=== PATIENT | female | born 1950 | race African-American/Black ===

== ENCOUNTER 2022-07-08 11:28 | Inpatient (IN) | payer OTHER ==
[2022-07-08 12:37] LABS: Mean Corpuscular HGB CONC 33.2 g/dL (32.0-36.0); Mean Corpuscular Hemoglobin 29.9 pg (27.0-33.0); Mean Platelet Volume 9.5 fl (7.4-10.4); Platelet Count 319 10x3/uL (150-450); RBC Distribution Width 18.1 % (11.5-14.5); Red Blood Cell (RBC) Count 3.01 10x6/uL (3.90-5.03); White Blood Cell (WBC) Count 4.8 10x3/uL (3.5-10.5)
[2022-07-08 12:38] LABS: MDiff Complete? YES
[2022-07-08 13:01] LABS: ALT (SGPT) 6 U/L (8-55); AST (SGOT) 19 U/L (5-34); Albumin 3.4 g/dL (3.4-4.8); Alkaline Phosphatase 50 U/L (40-110); Anion Gap 20 mmol/L (10-20); BUN (Urea Nitrogen) 17 mg/dL (9.8-20.1); Bilirubin, Total 0.4 mg/dL (0.2-1.2); Calc. Creatinine Clearance 0 mL/min (70-130); Calcium 9.3 mg/dL (7.8-10.44); Carbon Dioxide 23 mmol/L (23-31); Chloride 91 mmol/L (98-107); Estimated GFR 63; Globulin 3.5 g/dL (2.4-3.5); Glucose 111 mg/dL (83-110); Potassium 4.3 mmol/L (3.5-5.1); Protein, Total 6.9 g/dL (5.8-8.1); Sodium 130 mmol/L (136-145)
[2022-07-08 13:14] LABS: Band 2 % (5-11); Eosinophils 4 % (0-10); Lymphocytes 7 % (21-51); Monocytes 21 % (0-10); Neutrophil 66 % (42-75)
[2022-07-08 13:17] LABS: Hypochromia SLIGHT = 6-15 cells (100X) (0-5/hpf); Platelet Morphology Comment Appears Adequate
[2022-07-08 13:44] LABS: Magnesium 1.6 mg/dL (1.6-2.6)
[2022-07-08 14:50] LABS: Bilirubin Neg (Negative); Glucose, Urine (Dipstick) Normal (Negative); Specific Gravity, Urine 1.005 (1.005-1.030); Urobilinogen Normal mg/dL (Less than 2); pH, Urine 6.5 (5.0-9.0)
[2022-07-08 15:03] LABS: Blood, Urine Unable to Interpret (Negative); Clarity Clear (Clear); Ketone, Urine Unable to Interpret mg/dL (Negative); Leukocyte Unable to Interpret (Negative); Nitrite Unable to Interpret (Negative); Protein, Urine (Dipstick) Unable to Interpret mg/dl (Neg-Trace)
[2022-07-08 15:05] LABS: RBC/HPF 0-3 HPF (0-3); Squamous Epithelial 0-3 HPF (0-3)
[2022-07-08 15:06] LABS: Bacteria/HPF Rare-Few HPF (None Seen)
[2022-07-08] MEDS ORDERED: Senokot S 8.6-50 MG TAB PO PRN (21:38)
[2022-07-08] MEDS ORDERED: Guaifenesin DM 100-10/5 ML UDCUP PO PRN (21:38)
[2022-07-08] MEDS ORDERED: HumaLOG 300 UNITS/3 ML VIAL SC PRN (21:38)
[2022-07-08] MEDS ORDERED: HYDROcodone/Acetaminophen 5/325 mg Tablet PO PRN (21:38)
[2022-07-08] MEDS ORDERED: Dextrose 5% in Water 1,000 ML IV PRN (21:38)
[2022-07-08] MEDS ORDERED: Calcium Carbonate 500 MG ChewTAB PO PRN (21:38)
[2022-07-08] MEDS ORDERED: Dextrose 50% Abboject 50 ML SYRINGE SLOW IVP PRN (21:38)
[2022-07-08] MEDS ORDERED: Ondansetron PF 4 MG/2 ML Vial IVP PRN (21:38)
[2022-07-08] MEDS ORDERED: Acetaminophen 325 MG TAB PO PRN (21:38)
[2022-07-08] MEDS ORDERED: Famotidine/PF 20 mg/2ml Vial SLOW IVP SCH (21:45)
[2022-07-08] MEDS ORDERED: Lactated Ringer's 1,000 ML IV SCH (21:45)
[2022-07-08] MEDS ORDERED: Promethazine HCl 12.5 MG in Sodium Chloride 0.9% 50 ML IVPB SCH (21:45)
[2022-07-08] MEDS ORDERED: Scopolamine 1.5 mg/72 hour Patch TD SCH (22:00)
[2022-07-08] MEDS ORDERED: Magnesium 2 GM/50 ML(in water) 2 GM in Premix Bag 1 BAG IVPB SCH (22:00)
[2022-07-08] MEDS ORDERED: Sodium Chloride 0.9% 1,000 ML IV SCH (22:15)
[2022-07-09 00:57] VITALS: BMI 19.8
[2022-07-09] MEDS ORDERED: Promethazine HCl 12.5 MG in Sodium Chloride 0.9% 50 ML IVPB SCH (01:15)
[2022-07-09 02:14] LABS: SARS-CoV-2 NAA Rapid Test Not Detected (NotDetected)
[2022-07-09 05:57] LABS: Anion Gap 19 mmol/L (10-20); BUN (Urea Nitrogen) 18 mg/dL (9.8-20.1); CK (CPK) 36 U/L (29-168); Calc. Creatinine Clearance 44 mL/min (70-130); Calcium 9.1 mg/dL (7.8-10.44); Carbon Dioxide 20 mmol/L (23-31); Chloride 94 mmol/L (98-107); Estimated GFR 68; Glucose 105 mg/dL (83-110); Magnesium 2.1 mg/dL (1.6-2.6); Potassium 4.3 mmol/L (3.5-5.1); Sodium 129 mmol/L (136-145)
[2022-07-09 06:09] LABS: Hemoglobin 9.2 g/dL (12.0-15.5); Mean Corpuscular HGB CONC 33.3 g/dL (32.0-36.0); Mean Corpuscular Volume 89.9 fl (81.6-98.3); Mean Platelet Volume 9.1 fl (7.4-10.4); Platelet Count 266 10x3/uL (150-450); RBC Distribution Width 18.5 % (11.5-14.5); Red Blood Cell (RBC) Count 3.07 10x6/uL (3.90-5.03); White Blood Cell (WBC) Count 4.6 10x3/uL (3.5-10.5)
[2022-07-09 06:20] LABS: Thyroid Stimulating Hormone 3.3354 uIU/mL (0.35-4.94)
[2022-07-09 06:52] LABS: MDiff Complete? YES
[2022-07-09 06:56] LABS: Lymphocytes 8 % (21-51); Monocytes 23 % (0-10); Neutrophil 69 % (42-75)
[2022-07-09 06:57] LABS: Platelet Morphology Comment Appears Adequate
[2022-07-09 06:59] LABS: Hypochromia SLIGHT = 6-15 cells (100X) (0-5/hpf)
[2022-07-09] MEDS: Calcium Carbonate 600 MG + Vit D TAB PO SCH ×2 (09:00→20:15)
[2022-07-09] MEDS: Multivitamin W/ Minerals 1 TAB PO SCH (09:00)
[2022-07-09] MEDS: Docusate 100 MG CAP PO SCH ×2 (09:00→20:15)
[2022-07-09] MEDS: Amlodipine 10 MG TAB PO SCH (16:50)
[2022-07-09] MEDS: Glimepiride 2 MG TAB PO SCH (16:53)
[2022-07-09] MEDS ORDERED: Rosuvastatin 10 MG TAB PO SCH (21:00)
[2022-07-10 05:05] LABS: Anion Gap 11 mmol/L (10-20); BUN (Urea Nitrogen) 13 mg/dL (9.8-20.1); Calc. Creatinine Clearance 50 mL/min (70-130); Calcium 8.8 mg/dL (7.8-10.44); Carbon Dioxide 26 mmol/L (23-31); Chloride 95 mmol/L (98-107); Estimated GFR 79; Glucose 122 mg/dL (83-110); Potassium 3.8 mmol/L (3.5-5.1); Sodium 128 mmol/L (136-145)
[2022-07-10] MEDS: Calcium Carbonate 600 MG + Vit D TAB PO SCH (08:35)
[2022-07-10] MEDS: Glimepiride 2 MG TAB PO SCH (08:35)
[2022-07-10] MEDS: Docusate 100 MG CAP PO SCH (08:35)
[2022-07-10] MEDS: Multivitamin W/ Minerals 1 TAB PO SCH (08:35)
[2022-07-10] MEDS: Amlodipine 10 MG TAB PO SCH (08:35)
[2022-07-10 12:23] VITALS: BP 144/74; TEMP 97.3
== END 2022-07-10 16:34 | disposition swing bed (61) | DRG 552 ==
LOC: CSHERS 11:28 → CSHTELE 21:38 → UNDOADMOB 07-09 00:45 → OBSVTOIN 07-09 15:30
PROVIDERS: ADMIT Student in an Organized Health Care Education/Training Program; ATTEND Internal Medicine
PROC: 0T9B70Z Drainage of Bladder with Drainage Device, Via Natural or Artificial Opening (ICD-10-PCS; principal; 2022-07-09)
DX: M47.816 Spondylosis without myelopathy or radiculopathy, lumbar region (principal); N13.30 Unspecified hydronephrosis; E87.1 Hypo-osmolality and hyponatremia; M51.36 Other intervertebral disc degeneration, lumbar region; M48.061 Spinal stenosis, lumbar region without neurogenic claudication; C53.9 Malignant neoplasm of cervix uteri, unspecified; I10 Essential (primary) hypertension; E11.9 Type 2 diabetes mellitus without complications; E78.5 Hyperlipidemia, unspecified; D63.8 Anemia in other chronic diseases classified elsewhere; M19.90 Unspecified osteoarthritis, unspecified site; R33.8 Other retention of urine; N32.0 Bladder-neck obstruction; R53.81 Other malaise; R11.2 Nausea with vomiting, unspecified; I80.9 Phlebitis and thrombophlebitis of unspecified site; Z20.822 Contact with and (suspected) exposure to COVID-19; Z79.84 Long term (current) use of oral hypoglycemic drugs; Z87.891 Personal history of nicotine dependence; Z79.899 Other long term (current) drug therapy
CPT/HCPCS: 36415; 36416; 51702; 72148; 74176; 76770; 80048; 80053; 81003; 81015; 82550; 82607; 83735; 84443; 84484; 85025; 87086; 93005; 93970; 96374; 96375; 97139; G0378; J1650; J1815; J2550; J3475; J7050; S0028; U0002

== ENCOUNTER 2022-11-05 00:47 | Inpatient (IN) | payer OTHER, MEDICAID ==
[2022-11-05 01:14] LABS: #Monocytes 0.3 10x3/uL (0.0-1.1); #Neutrophils 4.8 10x3/uL (1.5-8.4); %Basophils 0.2 % (0.0-2.0); %Eosinophils 0.4 % (0.0-6.0); %Lymphocytes 7.1 % (18.0-47.0); %Monocytes 5.1 % (0.0-10.0); Hemoglobin 8.8 g/dL (12.0-15.5); Mean Corpuscular HGB CONC 31.9 g/dL (32.0-36.0); Mean Corpuscular Hemoglobin 29.2 pg (27.0-33.0); Mean Corpuscular Volume 91.7 fl (81.6-98.3); Platelet Count 161 10x3/uL (150-450); RBC Distribution Width 14.2 % (11.5-14.5); Red Blood Cell (RBC) Count 3.01 10x6/uL (3.90-5.03); White Blood Cell (WBC) Count 5.5 10x3/uL (3.5-10.5)
[2022-11-05 01:14] LABS: Bilirubin Neg (Negative); Blood, Urine 25 (Negative); Clarity Cloudy (Clear); Glucose, Urine (Dipstick) Normal (Negative); Ketone, Urine Negative (Negative); Leukocyte 500 (Negative); Nitrite Negative (Negative); Protein, Urine (Dipstick) 100 mg/dl (Neg-Trace); Urobilinogen Normal mg/dL (Less than 2)
[2022-11-05 01:16] LABS: Bacteria/HPF 4+ HPF (None Seen); CAUTI Indications for Culture Alt mental st,lethar; Other Microscopic Description Less than 2 mL rec'd; RBC/HPF 0-3 HPF (0-3); Squamous Epithelial None Seen HPF (0-3); Triple Phosphate Crystal 3+ HPF (None Seen)
[2022-11-05 01:17] LABS: Urine Culture Reflex No No
[2022-11-05 01:24] LABS: ALT (SGPT) Less than 7 U/L (8-55); AST (SGOT) 15 U/L (5-34); Albumin 3.5 g/dL (3.4-4.8); Alkaline Phosphatase 40 U/L (40-110); Anion Gap 17 mmol/L (10-20); BUN (Urea Nitrogen) 18 mg/dL (9.8-20.1); Bilirubin, Total 0.4 mg/dL (0.2-1.2); Calc. Creatinine Clearance 0 mL/min (70-130); Calcium 8.7 mg/dL (7.8-10.44); Carbon Dioxide 20 mmol/L (23-31); Chloride 103 mmol/L (98-107); Estimated GFR 66; Globulin 4.2 g/dL (2.4-3.5); Glucose 199 mg/dL (83-110); Lipase 37 U/L (8-78); Magnesium 1.9 mg/dL (1.6-2.6); Potassium 4.4 mmol/L (3.5-5.1); Protein, Total 7.7 g/dL (5.8-8.1); Sodium 136 mmol/L (136-145)
[2022-11-05] MEDS ORDERED: Ondansetron ODT 4 MG TAB ONE (02:23)
[2022-11-05] MEDS ORDERED: Dicyclomine 20 MG/2 ML VIAL ONE (02:23)
[2022-11-05] MEDS ORDERED: Mineral Oil ENEMA ONE (03:31)
[2022-11-05] MEDS ORDERED: Ondansetron PF 4 MG/2 ML Vial IVP PRN (03:44)
[2022-11-05] MEDS ORDERED: traMADol HCl 50 MG TAB PO PRN (03:50)
[2022-11-05] MEDS ORDERED: HumaLOG 300 UNITS/3 ML VIAL SC PRN ×2 (03:51)
[2022-11-05] MEDS ORDERED: Glucagon 1 MG/ML KIT IM PRN (03:51)
[2022-11-05] MEDS ORDERED: Dextrose 50% Abboject 50 ML SYRINGE SLOW IVP PRN (03:51)
[2022-11-05] MEDS ORDERED: Dextrose 5% in Water 1,000 ML IV PRN (03:51)
[2022-11-05 04:27] VITALS: BMI 24.2
[2022-11-05] MEDS ORDERED: Cefepime 1 GM VIAL ONE ×2 (05:57→16:01)
[2022-11-05] MEDS: Cefepime 1 GM in Sodium Chloride 0.9% 100 ML IVPB SCH ×2 (06:14→16:09)
[2022-11-05] MEDS: Pregabalin 75 MG CAP PO SCH ×2 (08:29→21:42)
[2022-11-05] MEDS: Amlodipine 5 MG TAB PO SCH (08:30)
[2022-11-05] MEDS: Acetaminophen 325 MG TAB PO PRN ×2 (08:30→21:36)
[2022-11-05] MEDS: Magnesium Oxide 400 MG TAB PO SCH (08:30)
[2022-11-05] MEDS: Polyethylene Glycol 3350 17 GM Packet PO SCH (08:30)
[2022-11-05] MEDS: Ferrous Sulfate 325 MG TAB PO SCH ×2 (08:30→16:09)
[2022-11-05] MEDS ORDERED: VANCOMYCIN 1.25 GM/250 ML BAG 1.25 GM in Premix Bag 1 BAG IVPB SCH (09:00)
[2022-11-05] MEDS: Rosuvastatin 10 MG TAB PO SCH (12:02)
[2022-11-05] MEDS ORDERED: Sodium Chloride 0.9% 100 ML ONE (16:01)
[2022-11-05] MEDS: cloNIDine 0.1 MG TAB PO SCH (21:36)
[2022-11-06] MEDS ORDERED: Vancomycin HCl 1 GM in Sodium Chloride 0.9% 250 ML 250 ML IVPB SCH (03:00)
[2022-11-06 04:12] LABS: ALT (SGPT) Less than 7 U/L (8-55); AST (SGOT) 10 U/L (5-34); Albumin 2.8 g/dL (3.4-4.8); Alkaline Phosphatase 29 U/L (40-110); Anion Gap 13 mmol/L (10-20); BUN (Urea Nitrogen) 22 mg/dL (9.8-20.1); Bilirubin, Total 0.5 mg/dL (0.2-1.2); Calc. Creatinine Clearance 57 mL/min (70-130); Calcium 8.5 mg/dL (7.8-10.44); Carbon Dioxide 21 mmol/L (23-31); Chloride 104 mmol/L (98-107); Estimated GFR 62; Globulin 3.3 g/dL (2.4-3.5); Glucose 117 mg/dL (83-110); Potassium 4.1 mmol/L (3.5-5.1); Protein, Total 6.1 g/dL (5.8-8.1); Sodium 134 mmol/L (136-145)
[2022-11-06 04:18] LABS: Hemoglobin 7.7 g/dL (12.0-15.5); Mean Corpuscular HGB CONC 32.5 g/dL (32.0-36.0); Mean Corpuscular Hemoglobin 30.4 pg (27.0-33.0); Mean Corpuscular Volume 93.7 fl (81.6-98.3); Mean Platelet Volume 10.7 fl (7.4-10.4); Platelet Count 162 10x3/uL (150-450); RBC Distribution Width 14.7 % (11.5-14.5); Red Blood Cell (RBC) Count 2.53 10x6/uL (3.90-5.03); White Blood Cell (WBC) Count 7.4 10x3/uL (3.5-10.5)
[2022-11-06 04:19] LABS: MDiff Complete? YES
[2022-11-06] MEDS: Cefepime 1 GM in Sodium Chloride 0.9% 100 ML IVPB SCH ×2 (05:07→16:31)
[2022-11-06 05:36] LABS: Band 2 % (5-11); Eosinophils 1 % (0-10); Lymphocytes 3 % (21-51); Monocytes 11 % (0-10); Neutrophil 83 % (42-75)
[2022-11-06 05:39] LABS: Hypochromia SLIGHT = 6-15 cells (100X) (0-5/hpf); Microcytosis SLIGHT = 6-15 cells (100X) (0-5/hpf); Platelet Adequacy Comment Appears Adequate; Schistocytes SLIGHT = 2-5 cells (100X) (0-1/hpf)
[2022-11-06] MEDS: Rosuvastatin 10 MG TAB PO SCH (09:01)
[2022-11-06] MEDS: Magnesium Oxide 400 MG TAB PO SCH (09:01)
[2022-11-06] MEDS: Pregabalin 75 MG CAP PO SCH ×2 (09:01→21:39)
[2022-11-06] MEDS: Ferrous Sulfate 325 MG TAB PO SCH ×2 (09:01→16:28)
[2022-11-06] MEDS: Amlodipine 5 MG TAB PO SCH (09:02)
[2022-11-06] MEDS: Acetaminophen 325 MG TAB PO PRN (09:02)
[2022-11-06] MEDS: Polyethylene Glycol 3350 17 GM Packet PO SCH (09:10)
[2022-11-06] MEDS: cloNIDine 0.1 MG TAB PO SCH (21:39)
[2022-11-07] MEDS: Cefepime 1 GM in Sodium Chloride 0.9% 100 ML IVPB SCH (05:45)
[2022-11-07] MEDS: Rosuvastatin 10 MG TAB PO SCH (09:06)
[2022-11-07] MEDS: Ferrous Sulfate 325 MG TAB PO SCH (09:06)
[2022-11-07] MEDS: Pregabalin 75 MG CAP PO SCH (09:06)
[2022-11-07] MEDS: Magnesium Oxide 400 MG TAB PO SCH (09:06)
[2022-11-07] MEDS: Polyethylene Glycol 3350 17 GM Packet PO SCH (09:08)
[2022-11-07] MEDS: Amlodipine 5 MG TAB PO SCH (09:08)
[2022-11-07 10:51] VITALS: BP 117/58; TEMP 99.2
== END 2022-11-07 12:35 | disposition home or self-care (01) | DRG 699 ==
LOC: CSHERS 00:47 → CSHTELE 04:00 → OBSVTOIN 11-06 08:23
PROVIDERS: ADMIT Internal Medicine; ATTEND Internal Medicine
DX: T83.091A Other mechanical complication of indwelling urethral catheter, initial encounter (principal); N39.0 Urinary tract infection, site not specified; T83.511A Infection and inflammatory reaction due to indwelling urethral catheter, initial encounter; E11.9 Type 2 diabetes mellitus without complications; I10 Essential (primary) hypertension; M54.9 Dorsalgia, unspecified; G89.29 Other chronic pain; K59.00 Constipation, unspecified; R33.9 Retention of urine, unspecified; Y83.8 Other surgical procedures as the cause of abnormal reaction of the patient, or of later complication, without mention of misadventure at the time of the procedure; R53.1 Weakness; Z79.899 Other long term (current) drug therapy; Z85.41 Personal history of malignant neoplasm of cervix uteri; Z92.21 Personal history of antineoplastic chemotherapy; Z98.890 Other specified postprocedural states; Z92.3 Personal history of irradiation; Z79.84 Long term (current) use of oral hypoglycemic drugs
CPT/HCPCS: 36415; 36416; 51701; 74176; 80053; 81001; 83690; 83735; 85025; 87040; 87077; 87086; 87186; 96372; 96374; 96375; 96376; G0378; J0692; J1650; J1815; J3370; J3490; J7050; Q0162

== ENCOUNTER 2023-05-21 12:20 | Outpatient (CLI) | payer OTHER, MEDICAID | END 2023-05-21 12:21 | disposition home or self-care (01) | LOC: CSHULT 12:20 | PROVIDERS: ATTEND Family Medicine | DX: R60.0 Localized edema (principal); I82.401 Acute embolism and thrombosis of unspecified deep veins of right lower extremity ==

== ENCOUNTER 2023-05-21 13:49 | Emergency (ER) | payer OTHER, MEDICAID ==
[2023-05-21] MEDS ORDERED: Enoxaparin 60 MG (0.6 mL) SYRINGE ONE (16:02)
[2023-05-21 16:51] LABS: #Eosinphils 0.2 10x3/uL (0.0-0.5); #Monocytes 0.7 10x3/uL (0.0-1.1); #Neutrophils 2.9 10x3/uL (1.5-8.4); %Basophils 0.2 % (0.0-2.0); %Eosinophils 3.8 % (0.0-6.0); %Lymphocytes 20.1 % (18.0-47.0); %Monocytes 13.7 % (0.0-10.0); %Neutrophils 61.8 % (40.0-75.0); Hematocrit 25.2 % (34.9-44.5); Mean Corpuscular HGB CONC 31.7 g/dL (32.0-36.0); Mean Corpuscular Hemoglobin 28.2 pg (27.0-33.0); Mean Corpuscular Volume 88.7 fl (81.6-98.3); Mean Platelet Volume 10.5 fl (7.4-10.4); Platelet Count 236 10x3/uL (150-450); RBC Distribution Width 19.9 % (11.5-14.5); Red Blood Cell (RBC) Count 2.84 10x6/uL (3.90-5.03); White Blood Cell (WBC) Count 4.7 10x3/uL (3.5-10.5)
[2023-05-21 17:11] LABS: ALT (SGPT) Less than 7 U/L (8-55); AST (SGOT) 10 U/L (5-34); Albumin 3.1 g/dL (3.4-4.8); Alkaline Phosphatase 61 U/L (40-110); Anion Gap 12 mmol/L (10-20); BUN (Urea Nitrogen) 27 mg/dL (9.8-20.1); Bilirubin, Total 0.2 mg/dL (0.2-1.2); Calc. Creatinine Clearance 0 mL/min (70-130); Carbon Dioxide 26 mmol/L (23-31); Chloride 104 mmol/L (98-107); Estimated GFR 56; Globulin 4.2 g/dL (2.4-3.5); Glucose 186 mg/dL (83-110); INR-International Normal Ratio 1.1; PTT 33.6 sec (22.0-33.0); Potassium 3.8 mmol/L (3.5-5.1); Protein, Total 7.3 g/dL (5.8-8.1); Prothrombin Time 11.9 sec (9.5-12.1); Sodium 138 mmol/L (136-145)
== END 2023-05-21 18:13 | disposition home or self-care (01) ==
LOC: CSHERS 13:49
DX: I82.401 Acute embolism and thrombosis of unspecified deep veins of right lower extremity (principal); D64.9 Anemia, unspecified; C53.9 Malignant neoplasm of cervix uteri, unspecified; E11.9 Type 2 diabetes mellitus without complications; I10 Essential (primary) hypertension; Z55.6 Problems related to health literacy
CPT/HCPCS: 36415; 80053; 85025; 85610; 85730; 93005; 96372; J1650